=== PATIENT | female | born 1995 | race Caucasian/White ===

== ENCOUNTER 2016-11-24 22:11 | Emergency (ER) | payer MEDICAID ==
[2016-11-24 22:18] VITALS: BP 132/73; PULSE 55; RESP 16; TEMP 97.7; O2SAT 98
[2016-11-24] MEDS ORDERED: NS 1,000 ML IV ONE (22:34)
[2016-11-24] MEDS ORDERED: ONDANSETRON 4 MG/2 ML VIAL IVP ONE (22:34)
--- NOTE | 2016-11-24 22:34 | EDPHY ---
H & P Stated Complaint: Dehydration, diarrhea, nausea. In [place] till 11/23 HPI/ROS: HPI CHIEF COMPLAINT: Diarrhea, lightheadedness HISTORY OF PRESENT ILLNESS: This patient very pleasant 21-year-old female, denies any significant medical history or surgical history does not take any daily medicines except control, she presents emergency room 5 days of diarrhea. She just returned from [place] 2 days ago. She has not had any fever. She denies any bloody diarrhea. No vomiting. She states she decided come the emergency room if she has been feeling lightheaded. Denies dizziness chest pain shortness of breath denies significant abdominal pain but does have some abdominal cramping. Past Medical History: No significant medical history Past Surgical History: No significant surgical history Social History: Denies daily use of drugs alcohol tobacco products. Resides here locally in [place]. Family History: Noncontributory. ROS REVIEW OF SYSTEMS: A comprehensive 10 point review of systems is otherwise negative aside from elements mentioned in the history of present illness. Exam Constitutional appears well nontoxic, triage nursing summary reviewed, vital signs reviewed, awake/alert. Eyes normal conjunctivae and sclera, EOMI, PERRLA. HENT normal inspection, atraumatic, moist mucus membranes, no epistaxis, neck supple/ no meningismus, no raccoon eyes. Respiratory clear to auscultation bilaterally, normal breath sounds, no respiratory distress, no wheezing. Cardiovascular rate normal, regular rhythm, no murmur, no edema, distal pulses normal. Gastrointestinal soft, non-tender, no rebound, no guarding, normal bowel sounds, no distension, no pulsatile mass. Genitourinary no CVA tenderness. Musculoskeletal no midline vertebral tenderness, full range of motion, no calf swelling, no tenderness of extremities, no meningismus, good pulses, neurovascularly intact. Skin pink, warm, & dry, no rash, skin atraumatic. Neurologic awake, alert and oriented x 3, AAOx3, moves all 4 extremities equally, motor intact, sensory intact, CN II-XII intact, normal cerebellar, normal vision, normal speech. Psychiatric normal mood/affect. Heme/Lymph/Immune no lymphadenopathy. Differential Diagnosis: Includes but is not limited to in a particular order, traveler's diarrhea, dehydration, electrolyte disturbance,ETEC, EHEC Medical Decision Making: Plan for this patient IV fluid bolus, IV establishment , check blood work, I have also ordered a stool sample if she can provide. Will hydrate and re-evaluate. Abdomen is benign at this time. Vital signs stable. No fever. Re-evaluation: 2328: Re-evaluation this time patient resting comfortably no acute distress. Abdomen soft. She was able to provide a stool sample this in the lab. She understands call in 24 hours to follow up the stool study. Blood work is reassuring. She has not been vomiting here no fever. She appears well nontoxic. She is agreeable discharge. Feels better after 1 L normal saline fluid bolus. Return precautions given. She understands return emergency room she develops worsening abdominal pain fever vomiting. Source: Patient - Personal History LMP (Females 10-55): 8-14 Days Ago Current Tetanus/Diphtheria Vaccine: Unsure Current Tetanus Diphtheria and Acellular Pertussis (TDAP): Unsure - Medical/Surgical History Hx Asthma: Yes Hx Chronic Respiratory Disease: No Hx Diabetes: No Hx Cardiac Disease: No Hx Renal Disease: No Hx Cirrhosis: No Hx Alcoholism: No Hx HIV/AIDS: No Hx Splenectomy or Spleen Trauma: No Other PMH: Asthma - Social History Smoking Status: Never smoked Constitutional: Initial Vital Signs Temperature (C) 36.5 C 11/24/16 22:14 Heart Rate 55 L 11/24/16 22:14 Respiratory Rate 16 11/24/16 22:14 Blood Pressure 132/73 H 11/24/16 22:14 O2 Sat (%) 98 11/24/16 22:14 O2 Delivery Mode Room Air Allergies/Adverse Reactions: peanut Allergy (Intermediate, Verified 11/24/16 22:18) Abdominal Cramping soy Allergy (Intermediate, Verified 11/24/16 22:18) Vomiting Home Medications: Medication Instructions Recorded Albuterol 11/24/16 Mononessa 28 Tablet 11/24/16 Medical Decision Making - Data Points Laboratory Results: Laboratory Results 11/24/16 22:45 11/24/16 22:45 11/24/16 11/24/16 22:45 22:45 WBC 4.82 10^3/uL 10^3/uL (3.80-9.50) RBC 4.28 10^6/uL 10^6/uL (4.18-5.33) Hgb 12.6 g/dL g/dL (12.6-16.3) Hct 37.3 % L % (38.0-47.0) MCV 87.1 fL fL (81.5-99.8) MCH 29.4 pg pg (27.9-34.1) MCHC 33.8 g/dL g/dL (32.4-36.7) RDW 13.0 % % (11.5-15.2) Plt Count 226 10^3/uL 10^3/uL (150-400) MPV 11.1 fL fL (8.7-11.7) Neut % (Auto) 50.4 % % (39.3-74.2) Lymph % (Auto) 37.6 % % (15.0-45.0) Moore % (Auto) 7.9 % % (4.5-13.0) Eos % (Auto) 3.3 % % (0.6-7.6) Baso % (Auto) 0.6 % % (0.3-1.7) Nucleat RBC Rel Count 0.0 % % (0.0-0.2) Absolute Neuts (auto) 2.43 10^3/uL 10^3/uL (1.70-6.50) Absolute Lymphs (auto) 1.81 10^3/uL 10^3/uL (1.00-3.00) Absolute Monos (auto) 0.38 10^3/uL 10^3/uL (0.30-0.80) Absolute Eos (auto) 0.16 10^3/uL 10^3/uL (0.03-0.40) Absolute Basos (auto) 0.03 10^3/uL 10^3/uL (0.02-0.10) Absolute Nucleated RBC 0.00 10^3/uL 10^3/uL (0-0.01) Immature Gran % 0.2 % % (0.0-1.1) Immature Gran # 0.01 10^3/uL 10^3/uL (0.00-0.10) Sodium 136 mEq/L mEq/L (134-144) Potassium 3.9 mEq/L mEq/L (3.5-5.2) Chloride 104 mEq/L mEq/L (97-110) Carbon Dioxide 20 mEq/l L mEq/l (22-31) Anion Gap 12 mEq/L mEq/L (8-16) BUN 14 mg/dL mg/dL (7-23) Creatinine 0.6 mg/dL mg/dL (0.6-1.0) Estimated GFR > 60 Glucose 84 mg/dL mg/dL (70-100) Calcium 9.2 mg/dL mg/dL (8.5-10.4) Total Bilirubin 0.3 mg/dL mg/dL (0.1-1.4) Conjugated Bilirubin 0.2 mg/dL mg/dL (0.0-0.5) Unconjugated Bilirubin 0.1 mg/dL mg/dL (0.0-1.1) AST 25 IU/L IU/L (14-46) ALT 36 IU/L IU/L (9-52) Alkaline Phosphatase 53 IU/L IU/L (38-126) Total Protein 6.8 g/dL g/dL (6.3-8.2) Albumin 4.0 g/dL g/dL (3.5-5.0) Lipase 146 IU/L IU/L (23-300) Medications Given: Discontinued Medications Sodium Chloride (Ns) 1,000 mls @ 0 mls/hr IV EDNOW ONE; Wide Open PRN Reason: Protocol Stop: 11/24/16 22:35 Last Admin: 11/24/16 22:48 Dose: 1,000 mls Departure - Departure Disposition: Home, Routine, Self-Care Clinical Impression: Diarrhea Qualifiers: Diarrhea type: unspecified type Qualified Code(s): R19.7 - Diarrhea, unspecified Condition: Good Instructions: Traveler's Diarrhea (ED), Dehydration (ED) Additional Instructions: 1. [place] diet next 48-72 hours. No spicy fatty greasy foods. 2. Drink lots of fluids stay well-hydrated. 3. Return emergency room if you have worsening abdominal pain fever bloody stool vomiting. Referrals: UNKNOWN,DOCTOR [Other] - As per Instructions Jose Luis Chino MD, FACG [Medical Doctor] - As per Instructions
[2016-11-24 22:58] LABS: % IMMATURE GRANULYOCYTES 0.2 % (0.0-1.1); ABSOLUTE IMMATURE GRANULOCYTES 0.01 10^3/uL (0.00-0.10); ADD DIFF? NO; ADD MORPH? NO; ADD SCAN? NO; ATYPICAL LYMPHOCYTE FLAG 60 (0-99); FRAGMENT RBC FLAG 0 (0-99); HEMATOCRIT 37.3 % (38.0-47.0); HEMOGLOBIN 12.6 g/dL (12.6-16.3); LEFT SHIFT FLG 0 (0-99); LIPEMIA HEMOLYSIS FLAG 90 (0-99); MEAN CELL HEMOGLOBIN 29.4 pg (27.9-34.1); MEAN CELL HEMOGLOBIN CONCENTR. 33.8 g/dL (32.4-36.7); MEAN CELL VOLUME 87.1 fL (81.5-99.8); MEAN PLATELET VOLUME 11.1 fL (8.7-11.7); PLATELET CLUMPS FLAG 0 (0-99); PLATELET COUNT 226 10^3/uL (150-400); RED BLOOD CELL COUNT 4.28 10^6/uL (4.18-5.33)
[2016-11-24 23:08] LABS: ALANINE AMINOTRANSFERASE 36 IU/L (9-52); ALKALINE PHOSPHATASE 53 IU/L (38-126); ANION GAP 12 mEq/L (8-16); ASPARTATE AMINOTRANSFERASE 25 IU/L (14-46); BILIRUBIN,TOTAL 0.3 mg/dL (0.1-1.4); BILIRUBIN-CONJUGATED 0.2 mg/dL (0.0-0.5); BILIRUBIN-UNCONJUGATED 0.1 mg/dL (0.0-1.1); CALCIUM 9.2 mg/dL (8.5-10.4); CARBON DIOXIDE 20 mEq/l (22-31); CHLORIDE 104 mEq/L (97-110); CREATININE 0.6 mg/dL (0.6-1.0); GLOMERULAR FILTRATION RATE > 60; GLUCOSE 84 mg/dL (70-100); POTASSIUM 3.9 mEq/L (3.5-5.2); SODIUM 136 mEq/L (134-144); TOTAL PROTEIN 6.8 g/dL (6.3-8.2)
== END 2016-11-24 23:42 | disposition home or self-care (01) ==
DX: R19.7 Diarrhea, unspecified (principal); E86.9 Volume depletion, unspecified; J45.909 Unspecified asthma, uncomplicated; Z91.010 Allergy to peanuts
CPT/HCPCS: J2405

== ENCOUNTER 2017-08-24 13:34 | Emergency (ER) | payer MEDICAID ==
[2017-08-24 13:38] VITALS: BP 140/78
--- NOTE | 2017-08-24 13:53 | EDPHY ---
H & P Smoking Status: Never smoked Time Seen by Provider: 08/24/17 13:40 HPI/ROS: CHIEF COMPLAINT: "I think I have sinusitis"x7 days HISTORY OF PRESENT ILLNESS: 21-year-old immunocompetent female, nonsmoker, complaining of sinus pressure, brown mucopurulent nasal discharge for the past 7 days. Positive otalgia bilaterally. Positive subjective fever. No cough. No dyspnea. No otalgia. No abdominal pain. No back or flank pain. No urinary abnormality. REVIEW OF SYSTEMS: A ten point review of systems was performed and is negative with the exception of the items mentioned in the HPI PAST MEDICAL & SURGICAL HISTORY: No pertinent medical or surgical history SOCIAL HISTORY: Nonsmoker PHYSICAL EXAM (Prior to examination, patient consented to physical exam, hands were washed and my usual and customary physical exam procedures followed) 1) GENERAL: Well-developed, well-nourished, alert and oriented. Appears to be in no acute distress. 2) HEAD: Normocephalic, atraumatic 3) HEENT: Pupils equal, round, reactive to light bilaterally. Sclera anicteric. Nasopharynx, oropharynx, clear, no lesions. No tonsillar enlargement no exudate. Tender to percussion frontal and maxillary sinuses. [ Ears bilaterally with normal tympanic membranes with no signs of otitis media or otitis externa bilaterally 4) NECK: Full range of motion, no meningeal signs. 5) LUNGS: Clear auscultation bilaterally, no wheezes, no rhonchi, no retractions. 6) HEART: Regular rate and rhythm, no murmur, no heave, no gallop. 7) ABDOMEN: No guarding, no rebound, no focal tenderness, negative McBurney's, negative Hamilton's, negative Rovsing's, negative peritoneal sign, 8) MUSCULOSKELETAL: Moving all extremities, no focal areas of tenderness, no obvious trauma. No peripheral edema or discoloration. 9) BACK: No CVA tenderness, no midline vertebral tenderness, no fluctuance, no step-off, no obvious trauma, no visual or palpable abnormality. 10) SKIN: No rash, no petechiae. 11) Psychiatric: Patient is oriented X 3, there is no agitation. DIFFERENTIAL DIAGNOSIS: In no particular order including but not limited to meningitis, otitis media, otitis externa, sinusitis, tonsillitis (Liana Amanda) Constitutional: Initial Vital Signs Temperature (C) 36.7 C 08/24/17 13:35 Heart Rate 78 08/24/17 13:35 Respiratory Rate 18 08/24/17 13:35 Blood Pressure 140/78 H 08/24/17 13:35 O2 Sat (%) 98 08/24/17 13:35 O2 Delivery Mode Room Air Allergies/Adverse Reactions: peanut Allergy (Intermediate, Verified 11/24/16 22:18) Abdominal Cramping soy Allergy (Intermediate, Verified 11/24/16 22:18) Vomiting Home Medications: Medication Instructions Recorded Albuterol 11/24/16 Mononessa 28 Tablet 11/24/16 Azithromycin [Zithromax] 500 mg PO DAILY #1 tablet 08/24/17 MDM/Departure - [facility] ED Course/Re-evaluation: I do not identify indication for chest x-ray as the patient's lungs are clear bilaterally, has a normal pulse ox, speaking full sentences, no signs of respiratory distress. Recommended trial of antibiotics given the longevity the patient's symptoms. Doubt meningitis. The patient understands that this diagnosis is provisional and can never be 100% accurate. Usual and customary warnings were given concerning the clinical impression and all the patient's questions were answered. The patient was instructed to return to the emergency department should her symptoms worsen or return, or develop any new symptoms, otherwise to followup as directed in discharge instructions. Care of patient under supervision of secondary supervising physician Dr William (Liana Amanda) I did not see this patient while she was in the emergency department. However her care was discussed with the PA while the patient was in the department. I agree with treatment plan and management (Roberto William) - Depart Disposition: Home, Routine, Self-Care Clinical Impression: Acute sinusitis Condition: Good Instructions: Azithromycin (By mouth), Sinusitis (ED) Additional Instructions: Return to the emergency department immediately for change in breathing habits, change in voice, change in swallowing habits, change in mental status, or any other symptoms that concern you. Prescriptions: Azithromycin [Zithromax] 500 mg PO DAILY #1 tablet Referrals: Zach Rajput MD [[facility] [place] Primary Care Provider] - 2-3 days, call for appt.
== END 2017-08-24 14:00 | disposition home or self-care (01) ==
DX: J01.80 Other acute sinusitis (principal); Z91.010 Allergy to peanuts